=== PATIENT | female | born 1955 | race Caucasian/White ===

== ENCOUNTER → 2016-10-30 | Day surgery (SDC) | payer OTHER ==
[~2016-10-30] MED LIST: AMLO5 PO; CALC600T25 PO; DIFL0.0512 LEFT EYE; DIPH1TAB PO; DIPH1TAB36 PO; ESTR1 PO; FISH1000 PO; IBUP200C PO; LACTATED RINGER'S 1000 ML INJ 1,000 ML ONE; LISI-515 PO; METO25TA3 PO; MULTTAB67 PO; PROPOFOL 200 MG/20 ML AMP IV ONE; ZOCO40TA PO
== END | disposition home or self-care (01) ==
LOC: ESDC 06:47
DX: R13.10 Dysphagia, unspecified (principal)
CPT/HCPCS: 00740; 43248; J3010; J7120

== ENCOUNTER → 2016-12-31 | Outpatient (CLI) | payer OTHER ==
[~2016-12-31] MED LIST changes: -LACTATED RINGER'S 1000 ML INJ 1,000 ML ONE; -PROPOFOL 200 MG/20 ML AMP IV ONE
[2016-12-31 08:31] LABS: AUTOMATED NEUTROPHIL # 3.1 TH/MM3 (1.8-7.7); BASOPHIL % 0.5 % (0.0-2.0); EOSINOPHIL # 0.3 TH/MM3 (0-0.4); EOSINOPHIL % 5.2 % (0.0-4.0); HEMATOCRIT 42.3 % (35.0-46.0); HEMO FLAGS DIFF FINAL; LYMPHOCYTE # 1.3 TH/MM3 (1.0-4.8); MEAN CELL VOLUME 81.8 FL (80.0-100.0); MEAN CORPUSCULAR HEMOGLOBIN 27.3 PG (27.0-34.0); MEAN CORPUSCULAR HGB CONC 33.4 % (32.0-36.0); MONO % 7.2 % (0.0-8.0); NEUT % 61.1 % (16.0-70.0); PLATELET COUNT 208 TH/MM3 (150-450); RED BLOOD COUNT 5.17 MIL/MM3 (4.00-5.30); RED CELL DISTRIBUTION WIDTH 13.2 % (11.6-17.2); WHITE BLOOD COUNT 5.1 TH/MM3 (4.0-11.0)
[2016-12-31 08:56] LABS: ANION GAP 9 MEQ/L (5-15); BICARBONATE 29.5 MEQ/L (21.0-32.0); BLOOD UREA NITROGEN 11 MG/DL (7-18); CHLORIDE 107 MEQ/L (98-107); GLOMERULAR FILTRATION RATE 108 ML/MIN (>89); GLUCOSE,FASTING 84 MG/DL (74-99); POTASSIUM 3.4 MEQ/L (3.5-5.1); SODIUM (NA) 145 MEQ/L (136-145)
[2016-12-31 09:08] LABS: ALKALINE PHOSPHATASE 80 U/L (45-117); ALT (GPT) 25 U/L (10-53); AST (GOT) 17 U/L (15-37); HDL CHOLESTEROL 71.1 MG/DL (40.0-60.0); LDL CHOLESTEROL 94 MG/DL (0-99); THYROXINE (T4) 9.6 MCG/DL (4.8-13.9); TOTAL BILIRUBIN ADULT 0.4 MG/DL (0.2-1.0)
== END ==
LOC: CLAB 07:50
PROVIDERS: ATTEND Family Medicine
DX: I10 Essential (primary) hypertension (principal); E78.2 Mixed hyperlipidemia; E03.8 Other specified hypothyroidism; Z79.899 Other long term (current) drug therapy
CPT/HCPCS: 36415; 80053; 80061; 84436; 84443; 84480; 85025

== ENCOUNTER → 2017-07-08 | Outpatient (CLI) | payer OTHER ==
[~2017-07-08] MED LIST changes: -CALC600T25 PO; +CALC600T5 PO; -DIPH1TAB36 PO; +ERYTOIN10 LEFT EYE; +PRED1SUS6 LEFT EYE
[2017-07-08 11:33] LABS: AUTOMATED NEUTROPHIL # 3.7 TH/MM3 (1.8-7.7); BASOPHIL % 0.5 % (0.0-2.0); EOSINOPHIL # 0.2 TH/MM3 (0-0.4); EOSINOPHIL % 3.6 % (0.0-4.0); HEMATOCRIT 42.8 % (35.0-46.0); HEMO FLAGS DIFF FINAL; LYMPH % 28.1 % (9.0-44.0); LYMPHOCYTE # 1.7 TH/MM3 (1.0-4.8); MEAN CELL VOLUME 83.4 FL (80.0-100.0); MEAN CORPUSCULAR HEMOGLOBIN 27.2 PG (27.0-34.0); MEAN CORPUSCULAR HGB CONC 32.6 % (32.0-36.0); MONO % 7.8 % (0.0-8.0); PLATELET COUNT 215 TH/MM3 (150-450); RED BLOOD COUNT 5.13 MIL/MM3 (4.00-5.30); RED CELL DISTRIBUTION WIDTH 13.6 % (11.6-17.2); WHITE BLOOD COUNT 6.1 TH/MM3 (4.0-11.0)
[2017-07-08 11:53] LABS: BICARBONATE 32.2 MEQ/L (21.0-32.0); POTASSIUM 3.8 MEQ/L (3.5-5.1)
[2017-07-08 12:06] LABS: BACTERIA, URINE RARE /hpf; BLOOD, URINE NEG (NEG); COMMENT (UR) CULT NOT INDICATED; CULTURE IF INDICATED CULT NOT INDICATED; GLUCOSE,URINE NEG (NEG); KETONE, URINE NEG (NEG); NITRITE,URINE NEG (NEG); PH, URINE 7.5 (5.0-8.5); URINE COLOR STRAW (YELLW/STRAW)
--- NOTE | 2017-07-08 14:16 | RADRPT ---
EXAM DATE/TIME: 07/08/2017 13:49 [place] COMPARISON: No previous studies available for comparison. INDICATIONS : Evaluate for pneumothorax, pneumonia or communicable disease. Preop chest for shoulder surgery on , no chest complaints at this time MEDICAL HISTORY : None. SURGICAL HISTORY : shoulder surgery ENCOUNTER: Initial ACUITY: 1 day PAIN SCORE: 0/10 LOCATION: Bilateral chest FINDINGS: PA and lateral views of the chest demonstrate the lungs to be symmetrically aerated without evidence of mass, infiltrate or effusion. The cardiomediastinal contours are unremarkable. Osseous structure s are intact. CONCLUSION: No acute disease. Richie Aceves MD FACR on July 08, 2017 at 14:14 Board Certified Radiologist. This report was verified electronically.
--- NOTE | 2017-07-08 22:09 | EKG ---
Date Performed: 07/08/2017 Time Performed: 11:37:01 PTAGE: 61 years EKG: Sinus rhythm POSSIBLE LEFT ATRIAL ENLARGEMENT LOW QRS VOLTAGE IN PRECORDIAL LEADS NONSPECIFIC T-WAVE ABNORMALITY BORDERLINE ECG Compared to prior tracing no significant change DOCTOR: Cameron Bennett Interpretating Date/Time 07/08/2017 22:08:04
== END ==
LOC: CPRE 10:40
PROVIDERS: ATTEND Orthopaedic Surgery
DX: Z01.810 Encounter for preprocedural cardiovascular examination (principal); Z01.811 Encounter for preprocedural respiratory examination; Z01.812 Encounter for preprocedural laboratory examination; M75.122 Complete rotator cuff tear or rupture of left shoulder, not specified as traumatic; R94.31 Abnormal electrocardiogram [ECG] [EKG]
CPT/HCPCS: 36415; 71020; 80048; 81001; 85025; 85610; 93005

== ENCOUNTER → 2017-07-18 | Day surgery (SDC) | payer OTHER ==
--- NOTE | 2017-07-14 17:47 | MH ---
cc: RHIANNON ALVAREZ M.D. DATE OF ADMISSION 07/18/2017 ADMISSION DIAGNOSIS A complete rotator cuff tear of the left shoulder, tear of biceps tendon left shoulder, effusion left shoulder, subacromial bursitis left shoulder, acromioclavicular arthrosis left shoulder, pain left shoulder. HISTORY OF THE PRESENT ILLNESS The patient is a 61-year-old white female who has experienced pain of her left shoulder of greater than 2 years duration. She had noted the abrupt onset of soreness about the shoulder area secondary to yard work activity while she was trying to cut branches with a yard tool. She initially conformed to conservative management which included alternating between heat and ice application, utilizing a TENS unit that she had available at home and exercising with periods of rest in between. With the passage of time her symptoms became more pronounced for which she described difficulty conforming to her daily routine. She had been taking ibuprofen with limited benefit. Her past history was significant for having undergone a previous surgical repair of her right rotator cuff completed in 2008. The patient described an uneventful recovery thereafter but felt that her current symptoms involving the left shoulder were similar in nature to pain that she had recalled involving her right shoulder condition. At the time of her initial office evaluation in May of 2015 the patient's x-ray studies were without evidence of any acute bony abnormality. The patient was diagnosed as having a left subacromial bursitis with impingement syndrome for which she was treated with a local steroid injection and thereafter followed on an outpatient basis. She returned to the office in November of 2015 reporting that the initial injection that she had received had resulted in rather dramatic improvement of her shoulder discomfort and she had done well thereafter until a month prior to the more current evaluation when she began to note a gradual recurrence of pain that was similar in nature to what she had experienced in the past. Based upon her previous experience she had requested a repeat injection which was completed and the patient monitoring her progress thereafter. She did subsequently undergo MRI scan of the left shoulder which identified severe tendinosis associated with a retracted proximal biceps tendon tear and a moderate-sized effusion with bursitis, and moderate to severe acromioclavicular joint arthrosis. The possibility of a component of adhesive capsulitis was also identified. Once again the patient requested a repeat injection in the hope that she might be able to experience improvement of her symptoms. Unfortunately she noted no significant improvement and thus underwent a more current MRI scan of her left shoulder which identified severe rotator cuff tendinosis with an associated large full-thickness rotator cuff tear of the supraspinatus and infraspinatus tendon measuring approximately 23 mm in anterior to posterior dimension and 26 mm in medial to lateral dimension. There was moderate atrophy of the supraspinatus muscle and severe subacromial subdeltoid bursitis with joint effusion. A high-grade tear of the long head of the biceps tendon was associated with a SLAP lesion and moderate osteoarthritis of the acromioclavicular joint. These findings were reviewed with the patient and treatment options discussed thereafter. The pros and cons of continued conservative management versus operative intervention that would involve an acromioplasty of the left shoulder with an attempted mini open rotator cuff repair was reviewed. Emphasis was made regarding the fact that the decision to proceed with surgery would be left entirely to the patient's discretion. The patient felt that she had exhausted all modes of conservative treatment and given the associated pain and limitations she was desirous of proceeding with surgery as discussed. In compliance with her wishes she is currently being scheduled for admission in order that the above be accomplished. She is right-hand dominant. PAST MEDICAL AND SURGICAL HISTORY Her past medical history, hospitalizations and surgeries have included: 1. Left total knee arthroplasty x2. 2. Right rotator cuff repair as described. 3. 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 Additional surgeries have included: 1. Tonsillectomy. 2. Total abdominal hysterectomy. 3. Colonoscopy. 4. Upper endoscopy with esophageal dilation. 5. C5-6 anterior cervical fusion. 6. And right carpal tunnel release. The patient's medical illnesses include: 1. Hypertension. 2. Elevated cholesterol. 3. Insomnia. MEDICATIONS Her current medications: 1. Potassium daily. 2. Amlodipine 5 mg twice daily. 3. Metoprolol 25 mg 1/2 tablet twice daily. 4. Lisinopril 20 mg twice daily. 5. Calcium citrate 600 mg daily. 6. A multivitamin tablet daily. 7. Zocor 8 mg daily. 8. Estradiol 1 mg daily. 9. Temazepam 30 mg p.r.n. 10. Tylenol PM three to four times per week. 11. Ibuprofen 200 mg 2 tablets twice daily. 12. Mobic 7.5 mg p.r.n. ALLERGIES THE PATIENT DESCRIBES A DRUG ALLERGY TO DEMEROL WHICH HAS BEEN ASSOCIATED WITH VOMITING. SHE TOLERATES MORPHINE AND CODEINE PRODUCTS. REVIEW OF SYSTEMS She does wear glasses. Denies headache, seizure or syncope. No sinus congestion or epistaxis. Auditory acuity intact. No tinnitus. No bleeding gums. She has a temporary crown as well as dental implant. No dysphagia. Denies cough, shortness of breath, upper respiratory infection, pneumonia or tuberculosis. No angina. She is medically managed for hypertension. Her appetite is good. Bowel movements are regular. No hepatitis, gallbladder disease, ulcers or hemorrhoids. No urinary tract infection. No kidney stones. Multiple fractures of the toes and finger area treated nonoperatively. No psychiatric illness. Her remaining review of systems unremarkable and noncontributory. FAMILY HISTORY The patient has been a for at least 5 years, at 60 years of age with a history of stroke and cardiac disease. Two daughters are described as being in good health. Family history is otherwise positive for hypertension and Alzheimer's disease. 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 She completed a bachelor's of science degree. She denies active use of tobacco since 2005 but had been less than one-pack per day user for approximately 25 years prior to that time. Ethanol consumption on a very limited basis. PHYSICAL EXAMINATION GENERAL: Height 5 feet 8 inches, weight 168 pounds. A 61-year-old white female who sits quietly upon examination table with no obvious distress. HEENT: Opacity of the left eye consistent with previous history of surgery. Right pupillary response intact. Extraocular movements full. External nares clear. External auditory canals clear. Dental intact. Mucous membranes pink and moist. Pharynx clear. NECK: Supple. There is some limitation of mobility at the extremes of motion indicated to be chronic in nature as related to previous cervical spine surgery. Carotid pulse palpable bilaterally. Trachea midline. Thyroid without enlargement. LUNGS: Clear to auscultation and percussion. No CVA tenderness. No discomfort about the dorsal lumbar spine. HEART: Regular rhythm. No murmur or gallop. ABDOMEN: Soft, nontender. Bowel sounds present. PELVIC: Per primary care physician. EXTREMITIES: Left shoulder, there is generalized tenderness about the superior and anterior aspect of the shoulder area extending into the biceps musculature. No palpable deformity. Limited mobility as the patient is unable to actively elevate her left hand above the head level. Internal rotation is limited to the posterior waistline. Cross-arm positioning of left hand onto right shoulder within normal limits. No sensation of crepitation or instability about the glenohumeral joint. Drop arm test positive. Mild weakness of both internal and external rotation. Hybrid Technologist strength intact. Sensory intact. NEUROLOGIC: Cranial nerves II-XII grossly intact excluding blindness of the left eye. IMPRESSION Complete rotator cuff tear of the left shoulder, subacromial bursitis left shoulder, effusion left shoulder, biceps tendon tear left shoulder, acromioclavicular arthrosis left shoulder, pain left shoulder PLAN Acromioplasty left shoulder with an attempted mini open rotator cuff repair. The nature of the planned surgical procedure, the potential complications and risks associated, the expectations of surgery and the consent form were thoroughly reviewed with the patient prior to admission to the hospital. Toya has indicated her full understanding regarding all of the above and given consent to proceed with treatment as outlined. Medical evaluation and clearance for surgery will be completed by her primary care physician Dr. Joel Tomas. MD EUNICE Heard/KK /4:54 PM /5:15 PM
[~2017-07-18] VITALS: Ht 172.7 cm; Wt 74.4 kg
[~2017-07-18] MED LIST changes: +ACETAMINOPHEN/HYDROcodone 325 MG/5 MG TAB PO PRN; +BUPIVACAINE HCL PF 0.5% 30 ML VIAL ONE; +CHLORHEXIDINE GLUCONATE 2 % 1 PACK (2 CLOTHS) TOPICAL PRN; +DEXAMETHASONE SOD PHOS 4 MG/ML VIAL IV ONE; -DIFL0.0512 LEFT EYE; -DIPH1TAB PO; +DO NOT ADM ANY ANTICOAGULANT DRUGS PRN; -FISH1000 PO; +GLYCOPYRROLATE 1 MG/5 ML SYRINGE IV PUSH ONE; +LACTATED RINGER'S 1000 ML IV PRN; +LIDOCAINE HCL 1% PF 5 ML SYRINGE OTHER ONE; +METOPROLOL TARTRATE 25 MG TAB PO PRN; +MORPHINE SULFATE 8 MG/ML INJ IM PRN; +NEOSTIGMINE 5 MG/5 ML SYRINGE IV PUSH ONE; +ONDANSETRON HCL 4 MG/2 ML VIAL IV ONE; +PHENYLEPH/NS 1000 MCG/10 ML SYR IV ONE; +POVIDONE IODINE 5% (ANTISEPSIS KIT) 4 APPLICATIONS EACH NARE PRN; +POVIDONE IODINE 7.5% SCRUB 118 ML BOTTLE TOPICAL SCH; +PROMETHAZINE INJ 25 MG/ML VIAL IM PRN; +PROPOFOL 200 MG/20 ML AMP IV ONE; +ROCURONIUM INJ 50 MG/5 ML SYRINGE IV PUSH ONE; +SODIUM CHLORID 0.9% 500 ML IV PRN; +SODIUM CHLORIDE 0.9% 20 ML VIAL ONE; +ceFAZolin INJ 1,000 MG VIAL ONE; +ePHEDrine/NS 25 MG/5 ML SYRINGE IV ONE
[2017-07-18] MEDS: ceFAZolin 2 GM PREMIX 50 ML IV SCH ×2 (09:01→09:09)
[2017-07-18 12:20] VITALS: BP 127/74; PULSE 83; RESP 16; TEMP 97.9; O2SAT 99
--- NOTE | 2017-07-18 18:42 | MP ---
cc: RHIANNON WATSON MD DATE OF SURGERY: 07/18/17 PREOPERATIVE DIAGNOSES Complete rotator cuff tear of the left shoulder, tear of biceps tendon left shoulder, effusion left shoulder, subacromial bursitis left shoulder, acromioclavicular arthrosis left shoulder, pain left shoulder POSTOPERATIVE DIAGNOSES Complete rotator cuff tear of the left shoulder, tear of biceps tendon left shoulder, effusion left shoulder, subacromial bursitis left shoulder, acromioclavicular arthrosis left shoulder, pain left shoulder, impingement syndrome left shoulder. PROCEDURE Acromioplasty of the left shoulder with mini-open rotator cuff repair. SURGEON Rhiannon Watson MD ANESTHESIA General endotracheal. FORMAT Following the induction of satisfactory general anesthesia by endotracheal intubation as completed per the Department of Anesthesia, the patient was positioned on the operating table in a modified beach-chair configuartion. A sheet roll was established along the vertebral border of the left scapula. The left shoulder and upper extremity proper were isolated with a U-drape, thereafter being prepped with Betadine solution and draped into a sterile field in the routine manner. Prior to initiation of the actual procedure, the standard time-out protocol was completed. All parameters were appropriately addressed and confirmed by operating room personnel. A sharp skin incision was initiated midline over the superior aspect of the shoulder along the lateral margin of the acromion and developed through underlying subcutaneous tissue with hemostasis maintained by electrocautery. By deepening dissection, the underlying deltoid musculature was exposed along its anterior raphe. The deltoid was divided in a [id number] orientation facilitating entry into the subacromial space. Significant proliferative bursal tissue was encountered and debrided in a limited fashion. There was hypertrophy along the anterior margin of the acromion consistent with an impingement phenomenon. An oblique osteotomy was completed encompassing the anterior and inferior margin of the acromion the undersurface of which was contoured with a bone rasp. Visual and digital inspection confirmed an adequate decompression within the confines of the subacromial space. Attention was initially directed within the confines of the joint space in an attempt to identify the biceps tendon. No significant tendinous structure could be identified, and it was assumed that it had been retracted in a more distal orientation upon its rupture. A significant vertical tear of the supraspinatus tendon was thereafter appreciated with marked fraying along the margins of the tear and attenuation of the adjacent tissue. Sharp debridement was accomplished along the margins of the tear and, thereafter, utilizing interrupted 0 Polydek suture in a [id number] orientation a primary repair of the tear was accomplished. The shoulder was thereafter carried through a passive range of motion. Stability of the rotator cuff was demonstrated with no evidence of residual impingement. The wound was copiously irrigated with saline solution. Hemostasis maintained by electrocautery. The deltoid was thereafter repaired with interrupted 0 Polydek suture. The remaining portion of the wound was closed in layers in the routine manner. The skin margins being reapproximated with a running subcuticular 3-0 Vicryl suture over which Steri-Strips were applied. Xeroform gauze and a bulky dry sterile dressing were placed, the extremity being supported in an arm sling. Anesthesia was discontinued. The patient was thus transferred to a hospital stretcher and returned to the recovery room in satisfactory condition having tolerated his operative procedure well. Estimated blood loss was less than 20 cc. MD EUNICE Heard/JAE /10:39 AM /6:16 PM
== END | disposition home or self-care (01) ==
LOC: HSDC 05:55
PROVIDERS: ATTEND Orthopaedic Surgery
DX: M75.122 Complete rotator cuff tear or rupture of left shoulder, not specified as traumatic (principal); M75.52 Bursitis of left shoulder; M19.012 Primary osteoarthritis, left shoulder; I10 Essential (primary) hypertension; E78.5 Hyperlipidemia, unspecified
CPT/HCPCS: 01630; 23420; J0690; J1100; J2370; J2405; J2710; J3010; J7120